=== PATIENT | male | born 1945 | race Caucasian/White ===

== ENCOUNTER 2018-02-14 18:04 | Emergency (ER) | payer MEDICARE ==
[~2018-02-14] VITALS: Ht 188 cm; Wt 112.7 kg
[~2018-02-14 18:04] MED LIST: ABILIFY10 MG PO; ASPIRIN325 MG PO; AVODART0.5 MG PO; BACTROBAN CREAM15 GM TOPICAL; CITRACAL + D E1 EACH PO; CLARITIN 10 MG10 MG PO; CLEOCIN HCL300 MG PO; CRANBERRY475 MG PO; FISH OIL 1,2001 CAP PO; FLOMAX0.4 MG PO; GLUCAGEN1 MG/VIAL IM; GLUCOPHAGE1000 MG PO; GLUCOPHAGE500 MG PO; JANUVIA100 MG PO; LANTUS INSULIN10 ML SC; MAG-OXIDE400 MG PO; MUCUS RELIEF400 MG PO; NOVOLIN R100 U/ML SQ; NUEDEXTA 20-101 EACH PO; PHENAZOPYRIDIN200 MG PO; PRINIVIL20 MG PO; SINGULAIR10 MG PO; ULTRAM50 MG PO; VITAMIN D31000 UNI2 PO; VITAMIN D5000 UNIT PO; ZOCOR20 MG PO
[2018-02-14 18:19] VITALS: Ht 188 cm; Wt 112.7 kg
[2018-02-14] MEDS ORDERED: KEFLEX500 MG PO (22:20)
[2018-02-14] MEDS ORDERED: VOLTAREN75 MG PO (22:20)
[2018-02-14 23:05] VITALS: BP 120/74
== END 2018-02-14 23:06 ==
LOC: D.ER 18:04
DX: L03.113 Cellulitis of right upper limb (principal); R60.0 Localized edema; E11.9 Type 2 diabetes mellitus without complications

== ENCOUNTER → 2018-10-10 08:14 | Outpatient (CLI) | payer MEDICARE, MEDICAID ==
[2018-02-14 18:19] VITALS: BMI 31.9
[~2018-10-10 08:14] MED LIST changes: +KEFLEX500 MG PO; +VOLTAREN75 MG PO
== END | disposition home or self-care (01) ==
LOC: D.CT 08:14
PROVIDERS: ATTEND Legal Medicine
DX: G20 Parkinson's disease (principal)

== ENCOUNTER 2019-12-29 12:21 | Inpatient (IN) | payer MEDICARE, MEDICAID ==
[~2019-12-29] VITALS: Ht 188 cm; Wt 115.2 kg
[2019-12-29] MEDS ORDERED: BASAGLAR K100 UNIT/1 SC ×2 (13:02)
[2019-12-29] MEDS ORDERED: LINZESS72 MCG PO (13:03)
[2019-12-29] MEDS ORDERED: BUSPAR10 MG PO (13:03)
[2019-12-29] MEDS ORDERED: IMODIUM2 MG PO (13:04)
[2019-12-29] MEDS ORDERED: SEROQUEL25 MG PO (13:05)
[2019-12-29] MEDS ORDERED: HUMULIN R100 UNIT/1 SC (13:05)
[2019-12-29] MEDS ORDERED: ZOLOFT50 MG PO (13:06)
[2019-12-29 13:39] LABS: ANION GAP 11.3 mmol/L (8-16); CALCIUM 9.8 mg/dL (8.5-10.1); CREATININE - SERUM 1.1 mg/dL (0.6-1.3); POTASSIUM - SERUM 4.3 mmol/L (3.5-5.1)
[2019-12-29 13:44] LABS: HEMATOCRIT 37.2 % (42.0-54.0); HEMOGLOBIN 11.2 g/dL (13.5-17.5); LYMPHOCYTES 16.1 % (15-50); MCH 21.8 pg (26.0-34.0); MCHC 30.1 g/dL (31.0-37.0); MCV 72.5 fL (80.0-100.0); MEAN PLATELET VOLUME 8.5 fL (7.4-10.4); NEUTROPHILS 74.9 % (40-80); RBC 5.13 10x6/uL (4.20-6.10); RDW 17.8 % (11.5-14.5); WBC 10.5 10x3/uL (4.8-10.8)
[2019-12-29 13:45] LABS: PLATELET COUNT 512 10x3/uL (130-400)
[2019-12-29 13:46] LABS: ALBUMIN 3.3 g/dL (3.4-5.0); BILIRUBIN - TOTAL 0.34 mg/dL (0.2-1.3); PROTEIN - SERUM 7.1 g/dL (6.4-8.2)
[2019-12-29 14:00] VITALS: BP 115/58
[2019-12-29 15:00] VITALS: BP 144/64
[2019-12-29 15:17] LABS: BILIRUBIN NEGATIVE (NEGATIVE); GLUCOSE NEGATIVE (NEGATIVE); KETONE NEGATIVE (NEGATIVE); NITRITE POSITIVE (NEGATIVE); SPECIFIC GRAVITY 1.025 (1.005-1.020); UROBILINOGEN NORMAL (NORMAL)
[2019-12-29 15:20] LABS: BACTERIA MANY /hpf (NEGATIVE); RED CELLS - URINE 0-5 /hpf (0-5); WHITE CELLS - URINE >50 /hpf (NEGATIVE)
[2019-12-29 16:03] VITALS: BP 162/72
[2019-12-29 17:03] VITALS: BP 157/75
[2019-12-29 18:50] VITALS: BP 139/59
--- NOTE | 2019-12-29 19:10 | NUR ---
PT ARRIVED ON UNIT.
--- NOTE | 2019-12-29 19:20 | NUR ---
PT SITUATED IN BED, IV FLUIDS AND ABX RUNNING. PT IS ALERT AND ORIENTED X3. RESTING COMFORTABLY IN BED. DENIES ANY NEEDS. BED IN LOWEST POSITION, BED RAILS X2, CALL LIGHT WITHIN REACH. WILL CONTINUE TO MONITOR.
[2019-12-29 21:15] VITALS: BP 125/54
--- NOTE | 2019-12-29 23:00 | NUR ---
A&O, SPEAKING AND WALKING, SLIGHT WEAKNESS NOTED. FSBS 47, GIVEN JUICE AND JELLO, AND ADDED TO HYPOGLYCEMIC PROTOCOL. TREATED PER PROTOCOL. FSBS AFTER RECHECK 100. CARMENCITA GIBBS PAGED AND NOTIFIED. FLUIDS CHANGED PER ORDER.
[2019-12-30 00:32] VITALS: BP 129/64
[2019-12-30 01:11] VITALS: BMI 32.5
--- NOTE | 2019-12-30 02:47 | NUR ---
I have reviewed this patient and I concur with the Shift Assessment completed by the Licensed Practical Nurse today this shift.
--- NOTE | 2019-12-30 05:30 | NUR ---
FSBS 65, PT GIVEN POPSICLE AND APPLE JUICE, CTM.
[2019-12-30 06:22] VITALS: BP 150/66
[2019-12-30 06:57] LABS: BASOPHILS 0.3 % (0-2); EOSINOPHILS 2.1 % (0-7); HEMATOCRIT 35.4 % (42.0-54.0); HEMOGLOBIN 10.4 g/dL (13.5-17.5); IMMATURE GRANULOCYTES 0.2 % (0-5); LYMPHOCYTES 15.4 % (15-50); MCH 21.6 pg (26.0-34.0); MCHC 29.4 g/dL (31.0-37.0); MCV 73.4 fL (80.0-100.0); MEAN PLATELET VOLUME 8.5 fL (7.4-10.4); MONOCYTES 7.7 % (2-11); NEUTROPHILS 74.3 % (40-80); RBC 4.82 10x6/uL (4.20-6.10); RDW 17.8 % (11.5-14.5); WBC 8.9 10x3/uL (4.8-10.8)
[2019-12-30 07:14] LABS: CALC OSMOLALITY 285 mosm/kg (275-300); CALCIUM 8.7 mg/dL (8.5-10.1); CARBON DIOXIDE 27.9 mmol/L (21.0-32.0); CHLORIDE - SERUM 105 mmol/L (98-107); GLUCOSE 148 mg/dL (74-106); SODIUM 142 mmol/L (136-145); UREA NITROGEN 12 mg/dL (7-18)
[2019-12-30 07:15] LABS: CREATININE - SERUM 0.8 mg/dL (0.6-1.3); eGFR NON AFRICAN AMERICAN > 90 mL/min (90-120)
--- NOTE | 2019-12-30 07:15 | NUR ---
ALERT AND SITTING UP IN CHAIR THIS AM. NO C/O PAIN. NO S/S OF ACUTE DISTRESS NOTED. UP WITH STANDBY ASSIST. INUPIAT. INCONTINENT OF B&B. IV TO RIGHT AC, D5 NS INFUSING @ 50ML/HR. SITE PATENT WITHOUT REDNESS OR SWELLING. DENIES ANY NEEDS AT THIS TIME. CALL LIGHT IN REACH. WILL CONTINUE TO MONITOR.
[2019-12-30 07:20] LABS: PLATELET COUNT 379 10x3/uL (130-400)
[2019-12-30 08:17] VITALS: BP 110/40
[2019-12-30 13:05] VITALS: BP 100/92
[2019-12-30 13:29] VITALS: Ht 188 cm; Wt 115.2 kg
--- NOTE | 2019-12-30 14:06 | NUR ---
I have reviewed this patient and I concur with the Shift Assessment completed by the Licensed Practical Nurse today this shift.
[2019-12-30 17:10] VITALS: BP 153/74
[2019-12-30 20:00] VITALS: BP 149/65
--- NOTE | 2019-12-30 20:00 | NUR ---
A&O X 4. PT RINCON. RAMBLES/MUMBLES RANDOM NUMBERS WHEN NOT ENGAGED IN CONVERSATION. DENIES PAIN, TOLERATING DIET, NO N/V. SCDs APPLIED. POPSICLE GIVEN PER REQUEST. NO FURTHER NEEDS AT THIS TIME.
[2019-12-31] VITALS: BP 157/63
[2019-12-31 04:00] VITALS: BP 155/74
[2019-12-31 07:02] LABS: CALC OSMOLALITY 279 mosm/kg (275-300); CALCIUM 9.2 mg/dL (8.5-10.1); CARBON DIOXIDE 30.4 mmol/L (21.0-32.0); CHLORIDE - SERUM 106 mmol/L (98-107); CREATININE - SERUM 0.8 mg/dL (0.6-1.3); GLUCOSE 108 mg/dL (74-106); POTASSIUM - SERUM 3.5 mmol/L (3.5-5.1); SODIUM 141 mmol/L (136-145); UREA NITROGEN 8 mg/dL (7-18); eGFR NON AFRICAN AMERICAN > 90 mL/min (90-120)
[2019-12-31 07:36] LABS: HEMATOCRIT 37.6 % (42.0-54.0); HEMOGLOBIN 11.3 g/dL (13.5-17.5); LYMPHOCYTES 14.8 % (15-50); MCH 21.9 pg (26.0-34.0); MCHC 30.1 g/dL (31.0-37.0); MCV 72.9 fL (80.0-100.0); MEAN PLATELET VOLUME 8.5 fL (7.4-10.4); NEUTROPHILS 77.7 % (40-80); RBC 5.16 10x6/uL (4.20-6.10); WBC 9.2 10x3/uL (4.8-10.8)
[2019-12-31 07:41] LABS: PLATELET COUNT 462 10x3/uL (130-400)
[2019-12-31 08:12] LABS: HEPATITIS C ANTIBODY <0.1 S/CO RAT (0.0-0.9)
[2019-12-31 08:19] VITALS: BP 106/74
[2019-12-31 12:27] VITALS: BP 117/75
--- NOTE | 2019-12-31 12:34 | NUR ---
ASSISTED UP TO BATHROOM. YAAKOV IN ROOM TO ASSIST BACK TO BED. PATIENT WITHOUT DISTRESS.
--- NOTE | 2019-12-31 12:39 | NUR ---
GIVEN IMODIUM 2 MG AT THIS TIME FOR SEVERAL LOOSE STOOLS. C/L IN REACH AT BEDSIDE.
[2019-12-31 16:37] VITALS: BP 146/65
[2019-12-31 17:00] LABS: % SATURATION 4 % (15-55); IRON 19 ug/dl (35-150); TOTAL IRON BIND CAPACITY 385 ug/dl (260-445); UNSAT IRON BIND CAPACITY 366 ug/dl (150-375)
[2019-12-31 20:00] VITALS: BP 149/68
--- NOTE | 2019-12-31 20:00 | NUR ---
PATIENT RESTING IN BED WATCHING TV. NO S/S OF ACUTE DISTRESS. NO C/O AT THIS TIME. PATIENT IS SLIGHTLY CONFUSED TO SITUATION, AND MUMBLES COUNTING NUMBERS OVER AND OVER. PATIENT HAS LEFT FOREARM, D5 NORMAL SALINE @ 50 ML/HR. IV IS PATENT WITHOUT REDNESS, SWELLING, OR TENDERNESS. PATEINT IS UP WITH ASSISTANCE TO BATHROOM. PATIENT HAS BOUTS OF BLADDER INCONTINENCE. CALL LIGHT WITHIN REACH, BED ALARM ON. WILL CONTINUE TO MONITOR.
--- NOTE | 2019-12-31 23:00 | NUR ---
I have reviewed this patient and I concur with the Shift Assessment completed by the Licensed Practical Nurse today this shift.
[2020-01-01] VITALS: BP 133/70
[2020-01-01 04:00] VITALS: BP 156/79
[2020-01-01 05:14] LABS: BASOPHILS 0.2 % (0-2); CALC OSMOLALITY 275 mosm/kg (275-300); CALCIUM 8.3 mg/dL (8.5-10.1); CARBON DIOXIDE 30.6 mmol/L (21.0-32.0); CHLORIDE - SERUM 107 mmol/L (98-107); CREATININE - SERUM 0.8 mg/dL (0.6-1.3); EOSINOPHILS 1.7 % (0-7); HEMATOCRIT 33.5 % (42.0-54.0); HEMOGLOBIN 9.9 g/dL (13.5-17.5); IMMATURE GRANULOCYTES 0.2 % (0-5); LYMPHOCYTES 18.6 % (15-50); MCH 21.5 pg (26.0-34.0); MCHC 29.6 g/dL (31.0-37.0); MCV 72.7 fL (80.0-100.0); MEAN PLATELET VOLUME 8.6 fL (7.4-10.4); MONOCYTES 8.2 % (2-11); NEUTROPHILS 71.1 % (40-80); POTASSIUM - SERUM 3.2 mmol/L (3.5-5.1); RBC 4.61 10x6/uL (4.20-6.10); RDW 17.8 % (11.5-14.5); SODIUM 141 mmol/L (136-145); UREA NITROGEN 6 mg/dL (7-18); WBC 8.7 10x3/uL (4.8-10.8); eGFR NON AFRICAN AMERICAN > 90 mL/min (90-120)
[2020-01-01 05:22] LABS: PLATELET COUNT 368 10x3/uL (130-400)
[2020-01-01 05:33] LABS: GLUCOSE 48 mg/dL (74-106)
--- NOTE | 2020-01-01 07:10 | NUR ---
ALERT AND RESTING IN BED. NO C/O PAIN. NO S/S OF ACUTE DISTRESS NOTED. UP WITH ASSIST. INCONTINENT AT TIMES OF B&B. SCDS ON. PATIENT COUNTS TO SELF. IV TO LEFT FOREARM, D5 NS INFUSING @ 50ML/HR. SITE PATENT WITHOUT REDNESS OR SWELLING. POTASSIUM 3.2 THIS AM. NOT ON ELECTROLYTE PROTOCOL. BLOOD SUGAR DROPS AT PER SEWING MACHINE OPERATOR ZIPPER NURSE, AFTER ADMINISTRATION OF LANTUS AT NIGHT. DENIES ANY NEEDS AT THIS TIME. CALL LIGHT IN REACH. WILL CONTINUE TO MONITOR.
--- NOTE | 2020-01-01 08:05 | NUR ---
LYING IN BED,WITHOUT DISTRESS.
[2020-01-01 08:33] VITALS: BP 171/76
[2020-01-01 12:22] VITALS: BP 148/75
[2020-01-01 16:59] VITALS: BP 143/60
[2020-01-01 20:00] VITALS: BP 149/66
--- NOTE | 2020-01-01 20:00 | NUR ---
PATIENT RESTING IN BED WATCHING TV. PATIENT IS A&0 X3-TIME. PATIENT ALSO COUNTS OVER AND OVER. PATIENT HAS LEFT FOREARM IV, D5 NORMAL SALINE @ 50 ML/HR. IV IS PATENT WITHOUT REDNESS, SWELLING, OR TENDERNESS. PATIENT IS A STAND-BY ASSIST TO THE BATHROOM. PATIENT IS INCONTINENT. CALL LIGHT WITHIN REACH. BED ALARM ON. WILL CONTINUE TO MONITOR.
--- NOTE | 2020-01-02 03:48 | NUR ---
I have reviewed this patient and I concur with the Shift Assessment completed by the Licensed Practical Nurse today this shift.
[2020-01-02 04:00] VITALS: BP 135/68
[2020-01-02 05:02] LABS: BASOPHILS 0.3 % (0-2); EOSINOPHILS 1.8 % (0-7); HEMATOCRIT 32.7 % (42.0-54.0); HEMOGLOBIN 9.6 g/dL (13.5-17.5); IMMATURE GRANULOCYTES 0.3 % (0-5); LYMPHOCYTES 18.5 % (15-50); MCH 21.4 pg (26.0-34.0); MCHC 29.4 g/dL (31.0-37.0); MEAN PLATELET VOLUME 8.6 fL (7.4-10.4); MONOCYTES 9.6 % (2-11); NEUTROPHILS 69.5 % (40-80); PLATELET COUNT 341 10x3/uL (130-400); RBC 4.48 10x6/uL (4.20-6.10); RDW 17.8 % (11.5-14.5); WBC 8.7 10x3/uL (4.8-10.8)
[2020-01-02 05:19] LABS: CALC OSMOLALITY 280 mosm/kg (275-300); CALCIUM 8.4 mg/dL (8.5-10.1); CARBON DIOXIDE 29.3 mmol/L (21.0-32.0); CHLORIDE - SERUM 109 mmol/L (98-107); CREATININE - SERUM 0.8 mg/dL (0.6-1.3); GLUCOSE 80 mg/dL (74-106); POTASSIUM - SERUM 3.4 mmol/L (3.5-5.1); SODIUM 143 mmol/L (136-145); UREA NITROGEN 5 mg/dL (7-18); eGFR NON AFRICAN AMERICAN > 90 mL/min (90-120)
--- NOTE | 2020-01-02 07:40 | NUR ---
RESTING IN BED, NO DISTRESS NOTED, ISOLATION IN PLACE DT URINE, CONT TO MONITOR SUGARS AND OUTPUT
[2020-01-02 08:30] VITALS: BP 163/78
[2020-01-02 12:30] VITALS: BP 159/80
[2020-01-02 17:39] VITALS: BP 148/77
--- NOTE | 2020-01-02 19:55 | NUR ---
PATIENT RESTING IN BED WITH NO S/S OF DISTRESS. PATIENT DENIES NEEDS AT THIS TIME. BED IN LOWEST POSITION AND CALL LIGHT WITHIN REACH. BED ALARM ON. ENCOURAGED THE PATIENT TO CALL IF HE HAS NEEDS. WILL CONTINUE TO MONITOR.
[2020-01-02 20:00] VITALS: BP 170/74
[2020-01-03] VITALS: BP 142/70
[2020-01-03 04:00] VITALS: BP 140/69
[2020-01-03 06:20] LABS: BASOPHILS 0.2 % (0-2); EOSINOPHILS 1.2 % (0-7); HEMOGLOBIN 10.2 g/dL (13.5-17.5); IMMATURE GRANULOCYTES 0.3 % (0-5); LYMPHOCYTES 14.6 % (15-50); MCH 21.7 pg (26.0-34.0); MCV 72.5 fL (80.0-100.0); MEAN PLATELET VOLUME 8.3 fL (7.4-10.4); MONOCYTES 8.7 % (2-11); PLATELET COUNT 316 10x3/uL (130-400); RBC 4.69 10x6/uL (4.20-6.10); WBC 9.7 10x3/uL (4.8-10.8)
[2020-01-03 06:33] LABS: CALC OSMOLALITY 278 mosm/kg (275-300); CALCIUM 8.5 mg/dL (8.5-10.1); CARBON DIOXIDE 30.9 mmol/L (21.0-32.0); CHLORIDE - SERUM 107 mmol/L (98-107); CREATININE - SERUM 0.6 mg/dL (0.6-1.3); POTASSIUM - SERUM 3.2 mmol/L (3.5-5.1); SODIUM 143 mmol/L (136-145); UREA NITROGEN 4 mg/dL (7-18); eGFR NON AFRICAN AMERICAN > 90 mL/min (90-120)
[2020-01-03 06:40] LABS: GLUCOSE 44 mg/dL (74-106)
--- NOTE | 2020-01-03 06:49 | NUR ---
GAVE PATIENT ORANGE JUICE FOR BLOOD GLUCOSE OF 44
--- NOTE | 2020-01-03 07:35 | NUR ---
RESTING IN BED, NO DISTRESS NOTED, COUNTING, IV INFUSING
[2020-01-03] MEDS ORDERED: BACTRIM DS TAB1 EAC1 PO (08:25)
[2020-01-03] MEDS ORDERED: LEVOFLOXACIN500 MG PO (08:25)
[2020-01-03 08:29] VITALS: BP 145/69
[2020-01-03] MEDS ORDERED: FLAGYL500 MG PO (08:34)
--- NOTE | 2020-01-03 08:57 | MORECARE ---
CASE MANAGEMENT DISCHARGE SUMMARY PATIENT: MARITZA ACUÑA UNIT: [id number] ADM DATE: 12/29/19 AGE: 74 : 43 SEX: M ROOM/BED: D.2240 AUTHOR: ALCIRA DRISCOLL PHYSICIAN: REFERRING PHYSICIAN: CODY TILLMAN MD DATE OF SERVICE: 01/03/20 Discharge Plan Patient Name: MARITZA ACUÑA Facility: [facility]:[place] : 1945 Planned Disposition: Anticipated Discharge Date: Discharge Date: Expected LOS: Initial Reviewer: [email or web address] Initial Review Date: 12/29/2019 Generated: 01/03/20 9:56 am External [facility] Contact Date: Service Request Date: Service Type: Resolution: Reviewer: Comments: Patient Name: MARITZA ACUÑA Page [id number] at 0857 All edits/amendments must be made on the electronic document DICTATION DATE: 01/03/20 0856 TOLL BRIDGE OPERATOR: LIZET 01/03/20 0856 RPT#: [id number] DC DATE: STATUS: ADM IN [facility] [address] [place] [address] END OF REPORT
--- NOTE | 2020-01-03 09:03 | MORECARE ---
CASE MANAGEMENT DISCHARGE SUMMARY PATIENT: MARITZA ACUÑA UNIT: [id number] ADM DATE: 12/29/19 AGE: 74 : 43 SEX: M ROOM/BED: D.2240 AUTHOR: ALCIRA DRISCOLL PHYSICIAN: REFERRING PHYSICIAN: CODY TILLMAN MD DATE OF SERVICE: 01/03/20 Discharge Plan Patient Name: MARITZA ACUÑA [facility] [facility] 1945 Planned Disposition: Anticipated Discharge Date: Discharge Date: Expected LOS: Initial Reviewer: [email or web address] Initial Review Date: 12/29/2019 Generated: 01/03/20 10:03 am DCPIA - Discharge Planning Initial Assessment Updated by [email or web address]: Kinza West on 01/03/20 9:00 am * How many steps to enter\exit or inside your home? 0/0 * PCP KISHOR * Pharmacy [facility] * Preadmission Environment [facility] * Facility Name [facility] * ADLs Partial Dependent * Partial ADLs (Assistance needed) Bathing Dressing Medication Management Toileting * List name and contact numbers for known caregivers / representatives who currently or will assist patient after discharge: WILLY [phone] * Community resources currently utilized None * Additional services required to return to the preadmission environment? No * Can the patient safely return to the preadmission environment? Yes * Has this patient been hospitalized within the prior 30 days at any hospital? No Last DP export: 01/03/20 7:57 a Patient Name: MARITZA ACUÑA Page [id number] at 0903 All edits/amendments must be made on the electronic document DICTATION DATE: 01/03/20902 BYPRODUCT ENGINEER: LIZET 01/03/20902 RPT#: [id number] DC DATE: STATUS: ADM IN [facility] [address] [place] [address] END OF REPORT
--- NOTE | 2020-01-03 09:10 | MORECARE ---
CASE MANAGEMENT DISCHARGE SUMMARY PATIENT: MARITZA ACUÑA UNIT: [id number] ADM DATE: 12/29/19 AGE: 74 : 43 SEX: M ROOM/BED: D.2240 AUTHOR: ALCIRA DRISCOLL PHYSICIAN: REFERRING PHYSICIAN: CODY TILLMAN MD DATE OF SERVICE: 01/03/20 Discharge Plan Patient Name: MARITZA ACUÑA Facility: [facility]:[place] : 1945 Planned Disposition: Anticipated Discharge Date: Discharge Date: Expected LOS: Initial Reviewer: [email or web address] Initial Review Date: 12/29/2019 Generated: 01/03/20 10:09 am Comments DCP- Discharge Planning Updated by [email or web address]: Kinza West on 01/03/20 8:[address] Patient Name: MARITZA ACUÑA Admission Status: ER Accout number: [id number] Admission Date: 12-29-2019 : 1945 Admission Diagnosis:URINARY TRACT INFECTION, SITE NOT SPECIFIED Attending: CODY TILLMAN Current LOS: 5 Anticipated DC Date: Planned Disposition: Primary Insurance: [facility] [place]PO Discharge Planning Comments: CM met with patient to complete initial dc planning assessment. CM educated patient on the CM role and verbal consent given by patient to complete assessment. CM verified patient's address, phone number, and emergency contact phone numbers. Patient currently resides at [facility] ([phone]). At discharge patient plans to return to the [facility] and feels this is a safe discharge. CM called the [facility] to initiate DC and Spoke with Jazmyne. CM faxed clinicals to [phone]. Jazmyne will speak with her supervisor gelatin plant to prepare for discharge. THUY form signed by patient for return to The [facility]. Signed form placed in chart and signed form given to patient. Patient denied further known discharge needs at this time. DC IMM delivered, explained, signed by the patient, and placed in his chart. Signed form also left with patient.Transportation provider at discharge will be from the [facility]. CM will continue to follow and will assist as needed with dc plans/needs. Php Programmer: Kinza West MSN,RN,CM DCPIA - Discharge Planning Initial Assessment Updated by [email or web address]: Kinza West on 01/03/20 9:00 am * How many steps to enter\exit or inside your home? 0/0 * PCP KISHOR * Pharmacy [facility] * Preadmission Environment [facility] * Facility Name [facility] * ADLs Partial Dependent * Partial ADLs (Assistance needed) Bathing Dressing Medication Management Toileting * List name and contact numbers for known caregivers / representatives who currently or will assist patient after discharge: WILLY [phone] * Community resources currently utilized None * Additional services required to return to the preadmission environment? No * Can the patient safely return to the preadmission environment? Yes * Has this patient been hospitalized within the prior 30 days at any hospital? No Coverage Notice Reviewer: [id number] West Notice Issued Date-Time: 01/03/2020 9:00 Notice Type: IM Discharge Notice Notice Delivered To: Patient Relationship to Patient: Electrical Designer Drafter Name: Delivery Method: HAND - Hand Delivered Susana Days: Prior Verbal Notification: Recipient Understood Notice: Yes Recipient Signature: Yes Med Rec Note Co-signed by Attending: Coverage Notice Comment: DC IMM delivered, explained, signed by the patient, and placed in his chart. Signed form also left with patient. Reviewer: [id number] Tianna West Notice Issued Date-Time: 01/03/2020 9:00 Notice Type: Patient Choice Letter Notice Delivered To: Patient Relationship to Patient: Electrical Designer Drafter Name: Delivery Method: HAND - Hand Delivered Susana Days: Prior Verbal Notification: Recipient Understood Notice: Yes Recipient Signature: Yes Med Rec Note Co-signed by Attending: Coverage Notice Comment: THUY to return to [facility] Last DP export: 01/03/20 8:03 a Patient Name: MARITZA ACUÑA Page [phone] at 0910 All edits/amendments must be made on the electronic document DICTATION DATE: 01/03/20908 MORTGAGE CLERK: LIZET 01/03/20908 RPT#: [id number] DC DATE: STATUS: ADM IN [facility] [address] [place] [address] END OF REPORT
--- NOTE | 2020-01-03 10:24 | MORECARE ---
CASE MANAGEMENT DISCHARGE SUMMARY PATIENT: MARITZA ACUÑA UNIT: [id number] ADM DATE: 12/29/19 AGE: 74 : 43 SEX: M ROOM/BED: D.2240 AUTHOR: ALCIRA DRISCOLL PHYSICIAN: REFERRING PHYSICIAN: CODY TILLMAN MD DATE OF SERVICE: 01/03/20 Discharge Plan Patient Name: MARITZA ACUÑA Facility: [facility]:[place] : 1945 Planned Disposition: Anticipated Discharge Date: Discharge Date: Expected LOS: Initial Reviewer: [email or web address] Initial Review Date: 12/29/2019 Generated: 01/03/20 11:23 am Comments DCP- Discharge Planning Updated by [email or web address]: Kinza West on 01/03/20 9:[address] Patient Name: MARITZA ACUÑA Admission Status: ER Accout number: [id number] Admission Date: 12-29-2019 : 1945 Admission Diagnosis:URINARY TRACT INFECTION, SITE NOT SPECIFIED Attending: CODY TILLMAN Current LOS: 5 Anticipated DC Date: Planned Disposition: Primary Insurance: [facility] [place] HMO or PPO Discharge Planning Comments: CM met with patient to complete initial dc planning assessment. CM educated patient on the CM role and verbal consent given by patient to complete assessment. CM verified patient's address, phone number, and emergency contact phone numbers. Patient currently resides at [facility] ([phone]). At discharge patient plans to return to the [facility] and feels this is a safe discharge. CM called the [facility] to initiate DC and Spoke with Jazmyne. CM faxed clinicals to [phone]. Jazmyne will speak with her coil machine supervisor to prepare for discharge. THUY form signed by patient for return to The [facility]. Signed form placed in chart and signed form given to patient. Patient denied further known discharge needs at this time. DC IMM delivered, explained, signed by the patient, and placed in his chart. Signed form also left with patient.Transportation provider at discharge will be from the [facility]. CM will continue to follow and will assist as needed with dc plans/needs. CM spoke with Jazmyne from [facility]. They have accepted pt back. He will return to a [facility] bed in room 104. Report can be called to Jazmyne at [phone]. CM updated nurse with details. The [facility] will sisal picker patient at 1100 am today. Dough Panner: Kinza West MSN,RN,CM DCPIA - Discharge Planning Initial Assessment Updated by [email or web address]: Kinza West on 01/03/20 9:00 am * How many steps to enter\exit or inside your home? 0/0 * PCP KISHOR * Pharmacy [facility] * Preadmission Environment [employer] [facility] * Facility Name [facility] * ADLs Partial Dependent * Partial ADLs (Assistance needed) Bathing Dressing Medication Management Toileting * List name and contact numbers for known caregivers / representatives who currently or will assist patient after discharge: WILLY [phone] * Community resources currently utilized None * Additional services required to return to the preadmission environment? No * Can the patient safely return to the preadmission environment? Yes * Has this patient been hospitalized within the prior 30 days at any hospital? No Coverage Notice Reviewer: [email or web address] Tianna Wset Notice Issued Date-Time: 01/03/2020 9:00 Notice Type: IM Discharge Notice Notice Delivered To: Patient Relationship to Patient: Liquor Merchant Name: Delivery Method: HAND - Hand Delivered Susana Days: Prior Verbal Notification: Recipient Understood Notice: Yes Recipient Signature: Yes Med Rec Note Co-signed by Attending: Coverage Notice Comment: DC IMM delivered, explained, signed by the patient, and placed in his chart. Signed form also left with patient. Reviewer: [email or web address] Tianna West Notice Issued Date-Time: 01/03/2020 9:00 Notice Type: Patient Choice Letter Notice Delivered To: Patient Relationship to Patient: Liquor Merchant Name: Delivery Method: HAND - Hand Delivered Susana Days: Prior Verbal Notification: Recipient Understood Notice: Yes Recipient Signature: Yes Med Rec Note Co-signed by Attending: Coverage Notice Comment: THUY to return to [facility] Last DP export: 01/03/20 8:10 a Patient Name: MARITZA ACUÑA Page [phone] at 1024 All edits/amendments must be made on the electronic document DICTATION DATE: 01/03/20 1023 SQL SERVER ARCHITECT: LIZET 01/03/20 1023 RPT#: [id number] DC DATE: STATUS: ADM IN [facility] [address] [place] [address] END OF REPORT
--- NOTE | 2020-01-03 11:20 | NUR ---
D/C IV, TIP INTACT, TAKEN FROM HOSPITAL PER ALBERT STAFF IN HIS W/C, DC PACKET INCLUDED
== END 2020-01-03 11:20 | DRG 392 ==
LOC: D.ER 12:21 → D.MS 17:31
PROVIDERS: Family Medicine; Internal Medicine Gastroenterology; ADMIT Legal Medicine; ATTEND Legal Medicine
DX: A09 Infectious gastroenteritis and colitis, unspecified (principal); N39.0 Urinary tract infection, site not specified; N28.1 Cyst of kidney, acquired; D47.3 Essential (hemorrhagic) thrombocythemia; D64.9 Anemia, unspecified; E11.9 Type 2 diabetes mellitus without complications; F20.9 Schizophrenia, unspecified; G20 Parkinson's disease; F02.80 Dementia in other diseases classified elsewhere, unspecified severity, without behavioral disturbance, psychotic disturbance, mood disturbance, and anxiety; B96.20 Unspecified Escherichia coli [E. coli] as the cause of diseases classified elsewhere

== ENCOUNTER 2020-01-31 06:38 | Inpatient (IN) | payer MEDICARE, MEDICAID ==
[~2020-01-31] VITALS: Ht 188 cm; Wt 106.2 kg
--- NOTE | ~2020-01-31 | HEMODYNAMI ---
PATIENT:MARITZA ACUÑA MEDICAL RECORD: [id number] : 41 LOCATION:[place] [address] ADMISSION DATE: 01/31/20 Generatedon:02/01/202012:43 Patient name: MARITZA ACUÑA Patient #: [id number] : 1945 Date of study: 02/01/2020 Page: Of Hemodynamic Procedure Report Patient Data Patient Demographics Procedure consent was obtained First Name: MARITZA Gender: Male Last Name: ARIANNE : 1945 Patient #: [id number] Age: 74 year(s) Race: SSN: [id number] Additional ID: [id number] Contact details Address: [address] [place] [address] rd State: [place] City: [facility] Zip code: [address] Past Medical History Allergies Allergen Reaction Date Comments Reported Other allergy 02/01/2020 PCN, SULFA Admission Admission Data Admission Date: 01/31/2020 Admission Time: 10:22 Arrival Date: 01/31/2020 Arrival Time: 10:22 Admit Source: Emergency Insurance Payor: Medicare department [facility] #: [id number] Room #: [facility] Height (in.): 73.62 BSA: 2.36 (m2) Height (cm.): 187 BMI: 31.74 (kg/m2) Weight (lbs.): 244.71 Weight (kg.): 111 Lab Results Lab Result Date: 02/01/2020 Lab Result Time: 1:00 CBC Name Units Result Min Max Hematocrit % 33.1 *-(----)-- 42 54 Hemoglobin g/dl 9.9 *-(----)-- 13.5 17.5 Procedure Procedure Types Cath Procedure Diagnostic Procedure [facility] w/Coronaries Sedation Charges Moderate Sedation up to 15 minutes PCI Procedure Coronary Stent Coronary Stent Initial Hemochron ACT Test Procedure Description Procedure Date Procedure Date: 02/01/2020 Procedure Start Time: 12:12 Procedure End Time: 12:39 Procedure Staff Name Function Alexander Harrison MD Performing Physician Jeanette Pabon RT Monitor Savita Martell RT Scrub Latisha Fernandez RN Nurse Procedure Data Cath Procedure Fluoroscopy Diagnostic fluoroscopy Total fluoroscopy Time: 4.5 time: 4.5 min min Diagnostic fluoroscopy Total fluoroscopy dose: 913 dose: 913 mGy mGy Contrast Material Contrast Material Type Amount (ml) Isovue 300 102 Entry Location Entry Primary Successful Side Size Upsize Upsize Entry Closure Succes sful Closure Location (Fr) 1 (Fr) 2 (Fr) Remarks Device Remarks Femoral Right 5 Fr 6 Fr Exoseal artery Short Estimated blood loss: 10 ml Diagnostic catheters Device Type Used For End Catheter Placement MULTIPACK JL 4.0 5Fr Procedure catheter MULTIPACK 3DRC 5Fr Procedure catheter MULTIPACK Pigtail 5 Fr Procedure catheter Procedure Complications No complications Procedure Medications Medication Administration Route Dosage Oxygen etCO2 Nasal cannula 2 l/min Lidocaine 2% added to field 20 Heparin Flush Bag added to field 2 bags (1000units/500ml NS) 0.9% NaCl I.V. 100 ml/hr Versed I.V. 0.5 mg Fentanyl I.V. 25 mcg Versed I.V. 0.5 mg Fentanyl I.V. 25 mcg Heparin Bolus I.V. 19441 units Plavix P.O. 600 mg Hemodynamics Rest BSA: 2.36 (m2) HGB: 9.9 (g/dl) O2 Consumption: Estimated: 278.56 (ml/min) O2 Con sumption indexed: Estimated:118.03 (ml/min/m) Heart Rate: 79 (bpm) Pressure Samples Time Site Value (mmHg) Purpose Heart Use Rate(bpm) 12:24 LV 158/-3,23 Snapshot 84 12:24 LV 153/-7,24 Snapshot 78 12:25 AO 154/58(100) Pullback 83 12:25 LV 155/1,37 Pullback 83 Gradients Valve Time Site 1 Site 2 Mean SEP/DFP Peak To Heart Use (mmHg) (sec/min) Peak Rate (mmHg) (bpm) Aortic 12:25 LV AO 9 24 1 83 155/1,37 154/58(100) Calculations Valve P-P Mean Valve Index Valve Source Name Gradient Area Flow (cm2) Aortic 1 9 1 9 Snapshots Pre Cath Intra NCS Post Cath Vital Signs Time Heart Resp SPO2 etCO2 NIBP (mmHg) Rhythm Pain Sedation Rate (ipm) (%) (mmHg) Status Level (bpm) 11:57:21 77 16 97 0 152/87(126) NSR 0 (11) 10(A) , No pain 12:01:35 83 21 95 0 159/76(124) NSR 0 (11) 10(A) , No pain 12:05:43 73 16 93 0 153/84(128) NSR 0 (11) 10(A) , No pain 12:09:49 73 16 97 0 159/89(125) NSR 0 (11) 10(A) , No pain 12:14:03 73 16 94 0 159/79(120) NSR 0 (11) 10(A) , No pain 12:19:00 81 16 97 0 154/82(125) NSR 0 (11) 9(A) , No pain 12:23:12 78 15 96 0 154/81(125) NSR 0 (11) 9(A) , No pain 12:27:26 81 16 96 0 157/80(127) NSR 0 (11) 9(A) , No pain 12:31:40 85 15 96 0 161/78(127) NSR 0 (11) 9(A) , No pain 12:35:54 86 16 96 0 149/77(126) NSR 0 (11) 10(A) , No pain Medications Time Medication Route Dose Verified Delivered Reason Note s Effectiveness by by 11:59:57 Oxygen etCO2 2 Alexander Buffie used for Nasal l/min Hunter Fernandez RN procedure cannula 12:00:05 Lidocaine 2% added 20ml Alexander Alexander for local to vial Hunter Harrison MD anesthetic field 12:00:11 Heparin Flush added 2 bags Alexander Alexander used for Bag to Hunter Harrison MD procedure (1000units/500ml field NS) 12:00:21 0.9% NaCl I.V. 100 Alexander Buffie Per physician ml/hr Hunter Fernandez RN 12:11:08 Versed I.V. 0.5 mg Alexander Buffie for sedation Hunter Fernandez RN 12:11:13 Fentanyl I.V. 25 mcg Alexander Buffie for sedation Hunter Fernandez RN 12:16:13 Versed I.V. 0.5 mg Alexander Buffie for sedation Hunter Fernandez RN 12:16:17 Fentanyl I.V. 25 mcg Alexander Latisha for sedation Hunter Fernandez RN 12:29:42 Heparin Bolus I.V. 10,000 Alexander Chiloie for veri fied units Hunter Fernandez RN anticoagulation with dr harrison 12:40:57 Plavix P.O. 600 mg Alexander Latisha for Hunter Fernandez RN antiplatelet therapy Procedure Log Time Note 10:44:19 Diagnostic Cath Status : Urgent 10:44:52 Informed consent obtained and on chart 10:45:56 Arrival Date: 01/31/2020 10:22:00 AM 10:46:18 Admit Source: Emergency department 10:46:26 Insurance Payor : Medicare 10:46:30 Patient Height : 73.62 inches 10:46:34 Patient Weight : 244.71 lbs 10:47:21 Lab Result : BUN 12 mg/dl 10:47:21 Lab Result : Hemoglobin 9.9 g/dl 10:47:21 Lab Result : eGFR NONAFRICAN 90 ml/min 10:47:21 Lab Result : Creatinine 0.7 mg/dl 10:47:30 Procedure Status Urgent Heart Cath (IP). 10:47:33 Time tracking: Regular hours (M-F 7:00 - 5:00) 10:47:37 Plan of Care:Hemodynamics will remain stable., Cardiac rhythm will remain stable., Comfort level will be maintained., Respiratory function will remain adequate., Patient/ family verbilizes understanding of procedure., Procedure tolerated without complication., Recovers from procedure without complications.. 11:37:15 Jeanette Pabon RT(R) sent for patient. Start room use. 11:56:27 Vital chart was started 11:57:42 Patient received from Med II to CCL 1 Alert and oriented. Tansferred to table in Supine position. 11:57:43 Warm blankets applied, and dorita hugger turned on for patient comfort. 11:57:43 Correct patient and procedure confirmed by team. 11:57:44 ECG and BP/O2 sat monitors applied to patient. 11:57:45 Baseline sample Acquired. 11:57:48 Rhythm: sinus rhythm 11:57:49 Full Disclosure recording started 11:57:53 H&P Date Dictated: 02/01/2020 ER History on chart.. 11:57:54 Pre-procedure instructions explained to patient. 11:57:54 Pre-op teaching completed and patient verbalized understanding. 11:59:39 Family unavailable. 11:59:40 Patient NPO since Midnight. 11:59:49 Patient allergic to Other allergyPCN, SULFA 11:59:57 Oxygen 2 l/min etCO2 Nasal cannula was administered by Latisha Fernandez RN; used for procedure; Verbal order read back and verified. 12:00:05 Lidocaine 2% 20ml vial added to field was administered by Alexander Harrison MD; for local anesthetic; Verbal order read back and verified. 12:00:11 Heparin Flush Bag (1000units/500ml NS) 2 bags added to field was administered by Alexander Harrison MD; used for procedure; Verbal order read back and verified. 12:00:12 Is patient on blood thinner?No 12:00:13 Patient diabetic? Yes. 12:00:19 If diabetic: On Metformin? Yes 12:00:21 0.9% NaCl 100 ml/hr I.V. was administered by Latisha Fernandez RN; Per physician; Verbal order read back and verified. 12:00:21 If on Metformin: Last Dose? 01/31/2020 12:00:26 Previous problem with sedation/anesthesia? No ? 12:00:27 Snore? Yes 12:00:28 Sleep apnea? No 12:00:31 Deviated septum? No 12:00:34 Opens mouth fully? Yes 12:00:35 Sticks out tongue? Yes 12:00:50 Airway obstruction? No ? 12:00:52 Dentures? No ? 12:00:54 Pre procedure: right dorsailis pedis pulse 1+ Palpable, but thready & weak; easily obliterated 12:00:56 Modified Hunter's test Ulnar < 7 seconds 12:00:58 Patient pain scale 0/10 ?. 12:01:03 IV patent on arrival in left hand with 0.9% NaCl at [facility]. 12:01:07 Lab results completed and on chart. 12:01:11 Right Radial & Right Groin area was prepped with chlora-prep and draped in sterile fashion 12:01:12 Alarms reviewed by R. N. 12:01:12 Sharps counted by scrub and verified by R.N. 12:04:04 Lab Result : Hemoglobin 9.9 g/dl 12:04:04 Lab Result : Hematocrit 33.1 % 12:04:41 Use device set Radial Dx or PCI 12:04:41 ACIST Syringe (97636) opened to sterile field. 12:04:42 Bag Decanter () opened to sterile field. 12:04:43 ACIST Hand Control (13174) opened to sterile field. 12:04:43 ACIST Manifold (96312) opened to sterile field. 12:04:44 Tegaderm 4 x 4 (1626W) opened to sterile field. 12:04:45 Medline Cath Pack ([id number]) opened to sterile field. 12:04:46 MBrace Wrist Support ([id number]) opened to sterile field. 12:04:46 NEEDLE Cook 21G 4cm Radial (V76134) opened to sterile field. 12:04:47 EMERALD Guide Wire (502-924) opened to sterile field. 12:04:48 SHEATH 6FR RAIN ([id number]) opened to sterile field. 12:07:48 --------ALL STOP TIME OUT------ 12:07:49 Final Timeout: patient, procedure, and site verified with staff and physician. All members of the team are in agreement. 12:07:51 Right Radial & Right Groin site verified by team. 12:07:55 Fire Safety Assessment: A--An alcohol-based skin anteseptic being used preoperatively., C--Open oxygen or nitrous oxide is being used., D--An ESU, laser, or fiber-optic light is being used. 12:07:57 Physical assessment completed. ASA score P 3 - A patient with severe systemic disease as per Alexander Harrison MD. 12:08:01 1) 90+ Normal kidney functon but urine findings or structural abnormalities or genetic trait point to kidney disease. 12:08:03 Maximum allowable contrast dose (3.7 X eGFR X 0.75)250 ml. 12:08:06 Sedation plan: IV Moderate Sedation Medication:Versed, Fentanyl 12:11:08 Versed 0.5 mg I.V. was administered by Latisha Fernandez RN; for sedation; Verbal order read back and verified. 12:11:13 Fentanyl 25 mcg I.V. was administered by Latisha Fernandez RN; for sedation; Verbal order read back and verified. 12:11:57 Procedure started. 12:12:55 Local anesthetic to right radial artery with Lidocaine 2% by Alexander Harrison MD.INITIAL ACCESS ONLY 12:15:44 UNABLE TO GAIN RADIAL ACCESS. 12:15:52 PROCEED TO GROIN 12:16:05 Use device set Multipack Set 12:16:07 DIAGNOSTIC Multipack 5Fr catheter set (ME1293) opened to sterile field. 12:16:08 SHEATH 5FR [place] (BUZ006) opened to sterile field. 12:16:13 Versed 0.5 mg I.V. was administered by Latisha Fernandez RN; for sedation; Verbal order read back and verified. 12:16:17 Fentanyl 25 mcg I.V. was administered by Latisha Fernandez RN; for sedation; Verbal order read back and verified. 12:16:29 Local anesthetic to right femoral artery with Lidocaine 2% by Alexander Harrison MD.ADDITIONAL ACCESS 12:18:24 A 5 Fr sheath was inserted into the Right Femoral artery 12:19:01 A MULTIPACK JL 4.0 5Fr catheter was advanced over the wire and used for Procedure. 12:21:02 LCA angiography performed. 12:21:04 Catheter exchanged over wire. 12:21:27 A MULTIPACK 3DRC 5Fr catheter was advanced over the wire and used for Procedure. 12:23:37 RCA angiography performed. 12:23:38 Catheter exchanged over wire. 12:23:40 ACCDominant side:Right 12:23:53 A MULTIPACK Pigtail 5 Fr catheter was advanced over the wire and used for Procedure. 12:24:42 LV gram done using DOLL 12:24:44 Injector settings: Ml/sec: 10, Volume: 20, 12:24:58 LV hemodynamics recorded. 12:25:11 EF : 25 % 12:25:27 Catheter exchanged over wire. 12:25:29 Proceeding to intervention. 12:25:48 GUIDE 6FR EBU 3.75 catheter ([id number]) opened to sterile field. 12:25:50 SHEATH 6FR Columbia (WFH563) opened to sterile field. 12:25:54 TUBING High Pressure Extension Tubing (Hunter) ([id number]) opened to sterile field. 12:26:10 INFLATOR Merit BasixCompak (IR7516) opened to sterile field. 12:26:20 BMW 300cm Straight [place] 2 wire ([id number]) opened to sterile field. 12:26:35 Pre PCI Site: [place] LAD has 80% stenosis. 12:27:04 Sheath upsized to a 6 Fr Short. 12:27:43 6 Fr EBU 3.75 guide catheter was inserted over the wire 12:29:42 Heparin Bolus 10,000 units I.V. was administered by Latisha Fernandez RN; for anticoagulation; verified with dr harrison Verbal order read back and verified. 12:30:01 BMW 300 wire advanced. 12:31:10 Wire advanced across lesion. 12:33:09 Place stent Inflation Number: 1 A INTEGRITY RX 3.0 x 26 stent ([id number]) was prepped and advanced across the Mid LAD . The stent was deployed at 15 [place] for 0:00 (min:sec) . 12:34:33 Stent catheter was removed intact over wire. 12:34:39 Wire removed. 12:34:39 Guide catheter removed. 12:34:45 EXOSEAL 6Fr (EX600) opened to sterile field. 12:35:42 Sheath removed intact; hemostasis achieved with Exoseal to the Right Femoral artery. 12:35:44 Procedure ended.(Physican Out) 12:37:13 Fluoroscopy time 04.50 minutes. 12:37:17 Fluoroscopy dose: 913 mGy 12:37:17 Flurop Dose total: 913 12:37:24 Dose Area Product 12727 mGy/cm. 12:37:31 Contrast amount:Isovue 300 102ml. 12:37:35 Maximum allowable dose exceeded? No. 12:37:36 Sharps counted by scrub and verified by R.N. 12:37:41 Post-op/insertion site Right Femoral artery dressed using a 4 x 4 and Tegaderm. 12:37:43 Post-procedure physical assessment completed. ASA score P 3 - A patient with severe systemic disease as per Alexander Harrison MD. 12:37:46 Post procedure rhythm: sinus rhythm 12:37:50 Estimated blood loss: 10 ml 12:37:51 Post procedure instruction explained to patient.Patient verbalizes understanding. 12:37:52 Patient needs reinforcement of post procedure teaching. 12:38:16 Procedure type changed to Cath procedure, Diagnostic procedure, LHC, LHC w/Coronaries, Sedation Charges, Moderate Sedation up to 15 minutes, PCI procedure, Coronary Stent, Coronary Stent Initial, Hemochron ACT Test 12:38:52 Procedure and supply charges have been captured, reviewed, submitted and are correct. 12:38:54 Procedure Complication : No complications 12:38:57 Vital chart was stopped 12:38:59 [facility] Findings: MVD- PCI performed (see procedure note) 12:39:00 Operative report dictated upon procedure completion. 12:39:01 See physician's report for complete and final results. 12:39:04 Report given to [facility]. 12:39:07 Patient transfered to [facility] with Bed. 12:39:09 Procedure ended. 12:39:09 Full Disclosure recording stopped 12:39:20 ACC-PCI Only Patient was given prescriptions, or instructed by Alexander Harrison MD to start/continue the following medications upon discharge: Plavix 12:39:22 End room use (Document Last) 12:40:44 ACT drawn and resulted at 307 seconds. (normal therapeutic range 180-240 seconds). 12:40:57 Plavix 600 mg P.O. was administered by Latisha Fernandez RN; for antiplatelet therapy; Verbal order read back and verified. 12:42:30 End room use (Document Last) Intervention Summary Intervention Notes Time ActionType Lesion and Equipment Action# Pressure Duration Attributes Used 12:33:09 Place stent Mid LAD INTEGRITY RX 1 15 00:00 3.0 x 26 stent ([id number]) Device Usage Item Name Manufacture Quantity Catalog Hospital Part Current Minim al Lot# / Number Charge Number Stock Stock Serial# Code ACIST Acist 1 20642 998347 390638 253831 20 Syringe Medical (42592) Systems Inc Bag Decanter Microtek 1 2001S 944334 42016 661986 5 (2001S) Medical Inc. ACIST Hand Acist 1 64209 202204 549962 183286 5 Control Medical (18678) Systems Inc ACIST Acist 1 90091 159957 154476 801887 5 Manifold Medical (25600) Systems Inc Tegaderm 4 x 3M 1 1626W 483305 745638 276192 5 4 (1626W) Medline Cath Medline 1 [id number] 094316 45043 525640 5 Pack ([id number]) MBrace Wrist Advanced 1 140-0250-00 155086 00651 541436 5 Support Vascular ([id number]) Dynamics NEEDLE Cook Brainard Medical 1 W74924 172391 865599 505336 5 21G 4cm Radial (N50207) EMERALD Cardinal 1 502-455 889942 921318 968055 5 Guide Wire Health (502-455) SHEATH 6FR Cardinal 1 4347847 094537 0838773 764595 5 [facility] (9970220) DIAGNOSTIC Cardinal 1 RK3400 011943 58670 777833 30 Multipack Health 5Fr catheter set (UF9138) SHEATH 5FR Terumo 1 UZV742 537804 437661 571640 5 [place] (NAH161) MULTIPACK JL Cardinal 1 477132 5 4.0 5Fr Health catheter MULTIPACK Cardinal 1 208941 5 3DRC 5Fr Health catheter MULTIPACK Cardinal 1 803537 5 Pigtail 5 Fr Health catheter GUIDE 6FR Medtronic 1 [id number] 481551 69681 286763 1 EBU 3.75 catheter ([id number]) SHEATH 6FR Terumo 1 CFU761 457384 702459 889300 40 [place] (UGH103) TUBING High Merit 1 [id number] 074211 06800 063307 10 Pressure Medical Extension Tubing (Harrison) (PS5120Z) INFLATOR Merit 1 RM1151 343498 019789 315836 15 Merit Medical BasixCompak (XH4202) BMW 300cm [place] 1 3890929 055335 635556 459665 5 Straight Vascular [place] 2 wire (5737046) INTEGRITY RX Medtronic 1 [id number] 754101 325568 723518 5 [id number] 3.0 x 26 stent ([id number]) EXOSEAL 6Fr Cardinal 1 EX600 003199 418034 673286 10 (EX600) Health Signature Audit [place] Stage Time Signature Unsigned Intra-Procedure 02/01/2020 Jeanette Pabon 12:42:30 PM RT(R) Intra-Procedure 02/01/2020 Latisha Fernandez RN 12:42:55 PM Intra-Procedure 02/01/2020 Alexander Harrison MD 12:43:20 PM Signatures Performing Physician : Signature : Alexander Harrison MD Date : Time : Monitor : Jeanette Pabon Signature : RT Date : Time : Nurse : Buffie Fernandez RN Signature : Date : Time : [address] [place] [address]
--- NOTE | ~2020-01-31 | HEMODYNAMI ---
PATIENT:MARITZA ACUÑA MEDICAL RECORD: [id number] : 41 LOCATION:[facility] D.2116 ADMISSION DATE: 01/31/20 Generatedon:02/02/202015:14 Patient name: MARITZA ACUÑA Patient #: [id number] : 1945 Date of study: 02/02/2020 Page: Of Hemodynamic Procedure Report Patient Data Patient Demographics Procedure consent was obtained First Name: MARITZA Gender: Male Last Name: ARIANNE : 1945 Patient #: [id number] Age: 74 year(s) Race: SSN: [id number] Additional ID: [id number] Contact details Address: [address] [place] [address] rd State: [place] City: [facility] Zip code: [address] Past Medical History History of disease Date Diagnosis Comments CAD Allergies Allergen Reaction Date Comments Reported Other allergy 02/01/2020 PCN, SULFA Other allergy 02/02/2020 PCN,SULFA Admission Admission Data Admission Date: 01/31/2020 Admission Time: 10:22 Arrival Date: 01/31/2020 Arrival Time: 10:22 Admit Source: Emergency Insurance Payor: Medicare department [facility] #: [id number] Room #: D2116 Height (in.): 73.62 BSA: 2.36 (m2) Height (cm.): 187 BMI: 31.74 (kg/m2) Weight (lbs.): 244.71 Weight (kg.): 111 Lab Results Lab Result Date: 02/02/2020 Lab Result Time: 0:00 Biochemistry Name Units Result Min Max BUN mg/dl 9 --(*---)-- 7 18 Creatinine mg/dl 0.6 --(*---)-- 0.6 1.3 eGFR ml/min 90 --(*---)-- 90 120 NONAFRICAN CBC Name Units Result Min Max Hematocrit % 33.4 *-(----)-- 42 54 Hemoglobin g/dl 10 *-(----)-- 13.5 17.5 Procedure Procedure Types Cath Procedure Diagnostic Procedure Sedation Charges Moderate Sedation up to 15 minutes PCI Procedure Coronary Stent Coronary Stent Initial Hemochron ACT Test Procedure Description Procedure Date Procedure Date: 02/02/2020 Procedure Start Time: 14:53 Procedure End Time: 15:09 Procedure Staff Name Function Jaxon Rocha MD Performing Physician Siomara Garcia RN Nurse Julia Tyson RT Scrub [facility] RT Monitor Procedure Data Cath Procedure Fluoroscopy Diagnostic fluoroscopy Total fluoroscopy Time: 2.1 time: 2.1 min min Diagnostic fluoroscopy Total fluoroscopy dose: 421 dose: 421 mGy mGy Contrast Material Contrast Material Type Amount (ml) Isovue 300 50 Entry Location Entry Primary Successful Side Size Upsize Upsize Entry Closure Succes sful Closure Location (Fr) 1 (Fr) 2 (Fr) Remarks Device Remarks Femoral Left 6 Fr Exoseal artery Short Estimated blood loss: 10 ml Procedure Complications No complications Procedure Medications Medication Administration Route Dosage 0.9% NaCl I.V. 100 ml/hr Oxygen etCO2 Nasal cannula 2 l/min Lidocaine 2% added to field 20 Heparin Flush Bag added to field 2 bags (1000units/500ml NS) Versed I.V. 2 mg Fentanyl I.V. 50 mcg Lopressor I.V. 5 mg Hemodynamics Rest BSA: 2.36 (m2) HGB: 10 (g/dl) O2 Consumption: Estimated: 280.67 (ml/min) O2 Cons umption indexed: Estimated:118.93 (ml/min/m) Heart Rate: 81 (bpm) Snapshots Pre Cath Intra NCS Post Cath Vital Signs Time Heart Resp SPO2 etCO2 NIBP (mmHg) Rhythm Pain Sedation Rate (ipm) (%) (mmHg) Status Level (bpm) 14:45:22 78 16 96 14.9 170/90(130) NSR 0 (11) 10(A) , No pain 14:49:58 83 19 96 19.4 174/91(127) NSR 0 (11) 10(A) , No pain 14:54:35 80 23 97 35.1 168/83(129) NSR 0 (11) 10(A) , No pain 14:59:34 88 21 94 27.6 Measuring NSR 0 (11) 9(A) , No pain 15:00:04 86 21 97 29.1 164/83(118) NSR 0 (11) 9(A) , No pain 15:05:03 89 22 97 29.1 Measuring NSR 0 (11) 9(A) , No pain 15:05:55 81 19 96 32.1 195/101(133) NSR 0 (11) 10(A) , No pain Medications Time Medication Route Dose Verified Delivered Reason Notes E ffectiveness by by 14:46:22 0.9% NaCl I.V. 100 Jaxon Siomara used for ml/hr [facility] procedure MD CORBETT 14:46:27 Oxygen etCO2 2 Jaxon Siomara used for Nasal l/min [facility] procedure cannula MD CORBETT 14:46:33 Lidocaine 2% added 20ml Jaxon Jaxon for local to vial [facility] anesthetic field MD DOWD 14:46:37 Heparin Flush added 2 Jaxon Jaxon used for Bag to bags [facility] John procedure (1000units/500ml field MD DOWD NS) 14:52:07 Versed I.V. 2 mg Jaoxn Siomara for sedation [facility] MD, RN 14:52:15 Fentanyl I.V. 50 Jaxon Siomara for sedation mcg [facility] Ma[facility] Garcia MD RN 15:06:20 Lopressor I.V. 5 mg Jaxon Harringtonyla for [facility] Maikel Garcia hypertension warehouse specialist Log Time Note 14:17:41 Patient Height : 73.62 inches 14:17:41 Patient Weight : 244.71 lbs 14:18:14 Procedure Status PCI. 14:18:15 Time tracking: Regular hours (M-F 7:00 - 5:00) 14:18:19 Plan of Care:Hemodynamics will remain stable., Cardiac rhythm will remain stable., Comfort level will be maintained., Respiratory function will remain adequate., Patient/ family verbilizes understanding of procedure., Procedure tolerated without complication., Recovers from procedure without complications.. 14:20:46 Patient allergic to Other allergyPCN,SULFA 14:21:17 Lab Result : BUN 9 mg/dl 14:21:17 Lab Result : eGFR NONAFRICAN 90 ml/min 14:21:17 Lab Result : Creatinine 0.6 mg/dl 14:21:17 Lab Result : Hematocrit 33.4 % 14:21:17 Lab Result : Hemoglobin 10 g/dl 14::25 Jeanette Pabon RT(R) sent for patient. Start room use. 14:33:01 Patient received from Med II to CCL 1 Alert and oriented. Tansferred to table in Supine position. 14:33:03 Signed procedure consent form obtained from patient. 14:33:04 Warm blankets applied, and dorita hugger turned on for patient comfort. 14:33:04 Correct patient and procedure confirmed by team. 14:33:05 ECG and BP/O2 sat monitors applied to patient. 14:43:53 Vital chart was started 14:43:55 Baseline sample Acquired. 14:44:00 Full Disclosure recording started 14:44:17 Pre-procedure instructions explained to patient. 14:44:17 Pre-op teaching completed and patient verbalized understanding. 14:44:21 Family unavailable. 14:44:22 Patient NPO since Midnight. 14:44:24 Is the patient allergic to Iodine/contrast media? No. 14:44:25 Is patient on blood thinner?Yes 14:44:27 ACC The patient was administered the following blood thiners within the last 24 hours: ACCPlavix 14:44:44 Patient diabetic? Yes. 14:44:45 If diabetic: On Metformin? Yes 14:44:48 If on Metformin: Last Dose? 01/31/2020 14:44:50 Previous problem with sedation/anesthesia? No ? 14:44:52 Snore? Yes 14:44:55 Sleep apnea? No 14:44:55 Deviated septum? No 14:44:56 Opens mouth fully? Yes 14:44:57 Sticks out tongue? Yes 14:45:04 Airway obstruction? No ? 14:45:06 Dentures? No ? 14:46:22 0.9% NaCl 100 ml/hr I.V. was administered by Siomara Garcia RN; used for procedure; Verbal order read back and verified. 14:46:27 Oxygen 2 l/min etCO2 Nasal cannula was administered by Siomara Garcia RN; used for procedure; Verbal order read back and verified. 14:46:33 Lidocaine 2% 20ml vial added to field was administered by Jaxon Rocha MD; for local anesthetic; Verbal order read back and verified. 14:46:37 Heparin Flush Bag (1000units/500ml NS) 2 bags added to field was administered by Jaxon Rocha MD; used for procedure; Verbal order read back and verified. 14:48:24 Pre procedure: left dorsailis pedis pulse 1+ Palpable, but thready & weak; easily obliterated 14:48:31 Patient pain scale 0/10 SHORT OF BREATH. 14:48:36 IV patent on arrival in left hand with 0.9% NaCl at O. 14:48:38 Lab results completed and on chart. 14:48:40 Left groin area was prepped with chlora-prep and draped in sterile fashion 14:48:42 Sharps counted by scrub and verified by R.N. 14:48:42 Alarms reviewed by R. N. 14:48:46 Use device set CATH PACK 14:48:46 ACIST Syringe (56835) opened to sterile field. 14:48:47 ACIST Hand Control (30627) opened to sterile field. 14:48:47 ACIST Manifold (83261) opened to sterile field. 14:48:47 Medline Cath Pack ([id number]) opened to sterile field. 14:48:48 Bag Decanter (2002S) opened to sterile field. 14:48:49 EMERALD Guide Wire (502-119) opened to sterile field. 14:48:55 SHEATH 6FR [place] (MFI192) opened to sterile field. 14:49:04 INFLATOR Merit BasixCompak (MP2376) opened to sterile field. 14:49:17 WHISPER 300cm guide wire ([id number]) opened to sterile field. 14:50:33 Baseline sample Acquired. 14:50:37 Rhythm: sinus rhythm 14:50:42 --------ALL STOP TIME OUT------ 14:50:42 Final Timeout: patient, procedure, and site verified with staff and physician. All members of the team are in agreement. 14:50:44 Left groin site verified by team. 14:50:47 Fire Safety Assessment: A--An alcohol-based skin anteseptic being used preoperatively., C--Open oxygen or nitrous oxide is being used., D--An ESU, laser, or fiber-optic light is being used. 14:50:50 Physical assessment completed. ASA score P 3 - A patient with severe systemic disease as per Jaxon Rocha MD. 14:50:51 1) 90+ Normal kidney functon but urine findings or structural abnormalities or genetic trait point to kidney disease. 14:50:53 Maximum allowable contrast dose (3.7 X eGFR X 0.75)250 ml. 14:50:56 Sedation plan: IV Moderate Sedation Medication:Versed, Fentanyl 14:52:07 Versed 2 mg I.V. was administered by Siomara Garcia RN; for sedation; Verbal order read back and verified. 14:52:15 Fentanyl 50 mcg I.V. was administered by Siomara Garcia RN; for sedation; Verbal order read back and verified. 14:53:09 Procedure started. 14:53:14 Zero performed for pressure channel P1 14:53:24 Local anesthetic to left femerol artery with Lidocaine 2% by Jaxon Rocha MD.INITIAL ACCESS ONLY 14:55:01 A 6 Fr Short sheath was inserted into the Left Femoral artery 14:55:12 GUIDE 6FR HS I catheter (LA6HSI) opened to sterile field. 14:55:23 ACC Pre-intervention CALISTA Flow is 3. 14:55:59 Pre PCI Site: [place] RCA has 90% stenosis. 14:56:42 6 Fr HS1 guide catheter was inserted over the wire 14:56:52 WHISPER 300 wire advanced. 14:57:42 Wire advanced across lesion. 14:59:47 Place stent Inflation Number: 1 A INTEGRITY RX 3.0 x 26 stent ([id number]) was prepped and advanced across the Dist RCA . The stent was deployed at 14 [place] for 0:00 (min:sec) . 15:01:01 Inflation number: 1 The stent balloon was then re-inflated across the Mid RCA to 10 [place] for 0:00 (min:sec) . 15:01:37 Stent catheter was removed intact over wire. 15:04:06 Place stent Inflation Number: 2 A INTEGRITY RX 3.0 x 15 stent ([id number]) was prepped and advanced across the Mid RCA . The stent was deployed at 14 [place] for 0:00 (min:sec) . 15:04:15 Stent catheter was removed intact over wire. 15:04:16 Wire removed. 15:04:16 Guide catheter removed. 15:05:00 EXOSEAL 6Fr (EX600) opened to sterile field. 15:05:12 Sheath removed intact; hemostasis achieved with Exoseal to the Left Femoral artery. 15:05:18 Fluoroscopy time 02.10 minutes. 15:05:21 Flurop Dose total: 421 15:05: Fluoroscopy dose: 421 mGy 15:05:27 Dose Area Product 59739 mGy/cm. 15:05:31 Contrast amount:Isovue 300 50ml. 15:05:33 Maximum allowable dose exceeded? No. 15:05:34 Sharps counted by scrub and verified by R.N. 15:05:43 Procedure ended.(Physican Out) 15:06:20 Lopressor 5 mg I.V. was administered by Siomara Garcia RN; for hypertension; Verbal order read back and verified. 15:07:15 Post-op/insertion site Left Femoral artery dressed using a 4 x 4 and Tegaderm. 15:07:20 Post-procedure physical assessment completed. ASA score P 3 - A patient with severe systemic disease as per Jaxon Rocha MD. 15:07:26 Post procedure rhythm: sinus rhythm 15:07:29 Estimated blood loss: 10 ml 15:07:36 Post procedure instruction explained to patient.Patient verbalizes understanding. 15:07:36 Patient needs reinforcement of post procedure teaching. 15:08:11 ACT drawn and resulted at 211 seconds. (normal therapeutic range 180-240 seconds). 15:08:12 Procedure type changed to Cath procedure, Diagnostic procedure, Sedation Charges, Moderate Sedation up to 15 minutes, PCI procedure, Coronary Stent, Coronary Stent Initial, Hemochron ACT Test 15:09:05 Procedure and supply charges have been captured, reviewed, submitted and are correct. 15:09:08 Procedure Complication : No complications 15:09:10 Vital chart was stopped 15:09:13 [facility] Findings: MVD- PCI performed (see procedure note) 15:09:19 Operative report dictated upon procedure completion. 15:09:19 See physician's report for complete and final results. 15:09:24 Report given to [facility]. 15:09:27 Patient transfered to [facility] with Bed. 15:09:29 Procedure ended. 15:09:29 Full Disclosure recording stopped 15:09:37 End room use (Document Last) Intervention Summary Intervention Notes Time ActionType Lesion and Equipment Action# Pressure Duration Attributes Used 14:59:47 Place stent Dist RCA INTEGRITY RX 1 14 00:00 3.0 x 26 stent ([id number]) 15:01:01 Reinflate Mid RCA INTEGRITY RX 1 10 00:00 stent 3.0 x 26 balloon stent ([id number]) 15:04:06 Place stent Mid RCA INTEGRITY RX 2 14 00:00 3.0 x 15 stent ([id number]) Device Usage Item Name Manufacture Quantity Catalog Hospital Part Current Minimal Lot# / Number Charge Number Stock Stock Serial# Code ACIST Acist 1 21419 912548 063190 124337 20 Syringe Medical (53271) Systems Inc ACIST Hand Acist 1 04053 038422 937412 754814 5 Control Medical (81886) Systems Inc ACIST Acist 1 22632 423298 321321 363638 5 Manifold Medical (77633) Systems Inc Medline Cath Medline 1 [id number] 883578 46973 192526 5 Pack ([id number]) Bag Decanter Microtek 1 2001S 255549 23201 303031 5 (2001S) [employer] EMERALD Cardinal 1 502-455 759458 946298 340889 5 Guide Wire [facility] (502-455) SHEATH 6FR Terumo 1 RQY222 280446 253021 201343 40 [place] (WBG750) INFLATOR Merit 1 KJ5861 371424 536634 402663 15 [facility] Medical BasixCompak (QS7338) WHISPER Blackmon 1 [id number] 321778 035127 058420 5 300cm guide Vascular wire ([id number]) GUIDE 6FR HS Medtronic 1 LA6HSI 881165 19376 331687 1 I catheter (LA6HSI) INTEGRITY RX Medtronic 1 [id number] 108265 975813 582085 5 [id number] 3.0 x 26 stent ([id number]) INTEGRITY RX Medtronic 1 [id number] 570670 686586 770522 5 [id number] 3.0 x 15 stent ([id number]) EXOSEAL 6Fr Cardinal 1 EX600 753517 594491 753839 10 (EX600) Health Signature Audit [place] Stage Time Signature Unsigned Intra-Procedure 02/02/2020 Jeanette Pabon 3:13:21 PM RT(R) Intra-Procedure 02/02/2020 Siomara Garcia 3:13:45 PM RN Intra-Procedure 02/02/2020 Jaxon Talavera 3:14:07 PM Maikel DOWD [facility] [address] [place] [address]
[~2020-01-31 06:38] MED LIST changes: +BACTRIM DS TAB1 EAC1 PO; +BASAGLAR K100 UNIT/1 SC; +BUSPAR10 MG PO; +FLAGYL500 MG PO; +HUMULIN R100 UNIT/1 SC; +IMODIUM2 MG PO; +LEVOFLOXACIN500 MG PO; +LINZESS72 MCG PO; +SEROQUEL25 MG PO; +ZOLOFT50 MG PO
[2020-01-31 06:57] LABS: HEMATOCRIT 33.8 % (42.0-54.0); HEMOGLOBIN 10.2 g/dL (13.5-17.5); LYMPHOCYTES 22.9 % (15-50); MCH 21.5 pg (26.0-34.0); MCHC 30.2 g/dL (31.0-37.0); MCV 71.3 fL (80.0-100.0); MEAN PLATELET VOLUME 8.5 fL (7.4-10.4); NEUTROPHILS 69.6 % (40-80); RBC 4.74 10x6/uL (4.20-6.10); RDW 18.1 % (11.5-14.5); WBC 8.2 10x3/uL (4.8-10.8)
[2020-01-31 06:59] LABS: PLATELET COUNT 444 10x3/uL (130-400)
[2020-01-31 07:03] LABS: CALC OSMOLALITY 287 mosm/kg (275-300); CALCIUM 8.5 mg/dL (8.5-10.1); CHLORIDE - SERUM 106 mmol/L (98-107); CREATININE - SERUM 0.7 mg/dL (0.6-1.3); POTASSIUM - SERUM 3.7 mmol/L (3.5-5.1); SODIUM 142 mmol/L (136-145); UREA NITROGEN 21 mg/dL (7-18); eGFR NON AFRICAN AMERICAN > 90 mL/min (90-120)
[2020-01-31 07:05] LABS: GLUCOSE 137 mg/dL (74-106)
[2020-01-31 07:24] LABS: ALBUMIN 2.9 g/dL (3.4-5.0); ALKALINE PHOSPHATASE 81 U/L (30-120); ALT (SGPT) 26 U/L (10-68); AMYLASE - SERUM 14 U/L (25-115); BILIRUBIN - TOTAL 0.38 mg/dL (0.2-1.3); PROTEIN - SERUM 6.4 g/dL (6.4-8.2)
[2020-01-31 07:25] LABS: LIPASE 33 U/L (73-393)
[2020-01-31 07:26] LABS: TROPONIN-I 0.071 ng/mL (0.000-0.060)
--- NOTE | 2020-01-31 07:26 | NUR ---
0.071 TROPONIN CALLED BY [facility] AT THIS TIME. NOTIFIED EDP.
--- NOTE | 2020-01-31 07:30 | NUR ---
PT ASSISTED TO STANDING ON SIDE OF BED. PT UNABLE TO URINATE. IN/OUT CATH ATTEMPTED AT THIS TIME BUT WAS UNSUCCESSFUL. CATH COULD NOT PASS THROUGH [facility]. EDP NOTIFIED.
--- NOTE | 2020-01-31 07:47 | NUR ---
PT LEFT ED VIA STRETCHER FOR CT.
--- NOTE | 2020-01-31 08:23 | NUR ---
PT RETURNED TO ED VIA STRETCHER FROM CT.
--- NOTE | 2020-01-31 08:39 | NUR ---
435ML PRESENT ON BLADDER SCAN
[2020-01-31 10:54] LABS: CKMB 3.7 U/L (0.0-3.6); CREATINE KINASE 88 UL (21-232)
[2020-01-31 10:56] LABS: TROPONIN-I 0.125 ng/mL (0.000-0.060)
--- NOTE | 2020-01-31 11:00 | NUR ---
URINE SENT TO LAB
[2020-01-31 11:37] LABS: GLUCOSE NEGATIVE (NEGATIVE); NITRITE NEGATIVE (NEGATIVE)
[2020-01-31 11:38] LABS: BILIRUBIN NEGATIVE (NEGATIVE); KETONE SMALL mg/dL (NEGATIVE); UROBILINOGEN NORMAL (NORMAL)
[2020-01-31 11:39] LABS: BACTERIA MODERATE /hpf (NEGATIVE); EPITHELIAL CELLS 0-5 /hpf (0-5); RED CELLS - URINE 0-5 /hpf (0-5); WHITE CELLS - URINE >50 /hpf (NEGATIVE); YEAST OCC /hpf (NONE SEEN)
[2020-01-31 12:06] VITALS: BP 144/65; BMI 31.5
[2020-01-31 12:45] VITALS: BP 150/88
[2020-01-31 16:37] LABS: CKMB 3.1 U/L (0.0-3.6); CREATINE KINASE 74 UL (21-232)
[2020-01-31 16:39] LABS: TROPONIN-I 0.132 ng/mL (0.000-0.060)
[2020-01-31 17:07] LABS: ALT (SGPT) 23 U/L (10-68); CALCIUM 7.9 mg/dL (8.5-10.1); CARBON DIOXIDE 29.8 mmol/L (21.0-32.0); CHLORIDE - SERUM 104 mmol/L (98-107); CHOL - HDL RATIO 3.6 ratio (2.3-4.9); CHOLESTEROL, TOTAL 94 mg/dL (0-200); CREATININE - SERUM 0.7 mg/dL (0.6-1.3); HDL CHOLESTEROL 26 mg/dL (32-96); LDL CHOLESTEROL 48 mg/dL (0-100); LDL-HDL RATIO 1.8 ratio (1.5-3.5); POTASSIUM - SERUM 3.9 mmol/L (3.5-5.1); SODIUM 138 mmol/L (136-145); TRIGLYCERIDE 101 mg/dL (30-200); UREA NITROGEN 17 mg/dL (7-18); eGFR NON AFRICAN AMERICAN > 90 mL/min (90-120)
[2020-01-31 17:08] LABS: CALC OSMOLALITY 283 mosm/kg (275-300); GLUCOSE 212 mg/dL (74-106)
[2020-01-31 18:06] VITALS: BP 138/66
--- NOTE | 2020-01-31 20:10 | NUR ---
1946 REPORT RECIEVED AND INITITAL ROUNDS COMPLETED. PT RESTING IN BED. CALL LIGHT IN REACH. NO DISTRESS. SEE ASSESSMENT.
[2020-01-31 21:30] VITALS: BP 137/63
[2020-01-31 22:38] LABS: CKMB 2.2 U/L (0.0-3.6); CREATINE KINASE 66 UL (21-232)
[2020-01-31 22:39] LABS: TROPONIN-I 0.117 ng/mL (0.000-0.060)
[2020-02-01 04:29] VITALS: BP 146/68
[2020-02-01 05:12] LABS: HEMATOCRIT 33.1 % (42.0-54.0); HEMOGLOBIN 9.9 g/dL (13.5-17.5); LYMPHOCYTES 21.5 % (15-50); MCH 21.5 pg (26.0-34.0); MCHC 29.9 g/dL (31.0-37.0); MCV 71.8 fL (80.0-100.0); MEAN PLATELET VOLUME 8.6 fL (7.4-10.4); NEUTROPHILS 70.9 % (40-80); PLATELET COUNT 371 10x3/uL (130-400); RBC 4.61 10x6/uL (4.20-6.10)
[2020-02-01 05:39] LABS: ALBUMIN 2.8 g/dL (3.4-5.0); ALKALINE PHOSPHATASE 79 U/L (30-120); ALT (SGPT) 22 U/L (10-68); BILIRUBIN - TOTAL 0.27 mg/dL (0.2-1.3); CALCIUM 8.2 mg/dL (8.5-10.1); CARBON DIOXIDE 29.1 mmol/L (21.0-32.0); CHLORIDE - SERUM 104 mmol/L (98-107); CREATININE - SERUM 0.7 mg/dL (0.6-1.3); POTASSIUM - SERUM 3.8 mmol/L (3.5-5.1); PROTEIN - SERUM 5.8 g/dL (6.4-8.2); SODIUM 139 mmol/L (136-145); eGFR NON AFRICAN AMERICAN > 90 mL/min (90-120)
[2020-02-01 05:41] LABS: CALC OSMOLALITY 280 mosm/kg (275-300); GLUCOSE 152 mg/dL (74-106); UREA NITROGEN 12 mg/dL (7-18)
--- NOTE | 2020-02-01 07:15 | NUR ---
RECEIVED PT IN BED EYES CLOSED RESP UNLABORED SKIN W/D NAD NOTED
[2020-02-01 09:00] VITALS: BP 152/62
[2020-02-01 14:05] VITALS: Ht 188 cm; Wt 106.2 kg
[2020-02-01 15:00] VITALS: BP 154/72
--- NOTE | 2020-02-01 17:37 | NUR ---
PT REFUSES SCDs AT THIS TIME
--- NOTE | 2020-02-01 19:45 | NUR ---
REPORT RECIEVED AND INITIAL ROUNDS COMPLETED. PT RESTING IN BED. BED IS SOAKED WITH URINE. CARE AND LINEN CHANGE PROVIDED. CPOC.
[2020-02-01 21:21] VITALS: BP 160/71
[2020-02-02 00:39] VITALS: BP 162/73
--- NOTE | 2020-02-02 06:00 | NUR ---
NO CHANGE FROM INITIAL SHIFT ASSESSMENT. PT HAS BEEN NPO SINCE MIDNIGHT FOR SCHEDULED AM PROCEDURE. CARE FOR INCONTINENCE PROVIDED TWICE DURING THE NIGHT. CPOC. CALL LIGHT IN REACH.
[2020-02-02 06:27] VITALS: BP 165/75
[2020-02-02 06:40] LABS: CALC OSMOLALITY 277 mosm/kg (275-300); CALCIUM 8.3 mg/dL (8.5-10.1); CARBON DIOXIDE 26.6 mmol/L (21.0-32.0); CHLORIDE - SERUM 104 mmol/L (98-107); CREATININE - SERUM 0.6 mg/dL (0.6-1.3); GLUCOSE 159 mg/dL (74-106); POTASSIUM - SERUM 3.9 mmol/L (3.5-5.1); SODIUM 138 mmol/L (136-145); UREA NITROGEN 9 mg/dL (7-18); eGFR NON AFRICAN AMERICAN > 90 mL/min (90-120)
[2020-02-02 07:52] LABS: HEMATOCRIT 33.4 % (42.0-54.0); LYMPHOCYTES 12.2 % (15-50); MCH 21.5 pg (26.0-34.0); MCHC 29.9 g/dL (31.0-37.0); MCV 71.7 fL (80.0-100.0); MEAN PLATELET VOLUME 8.9 fL (7.4-10.4); NEUTROPHILS 80.9 % (40-80); PLATELET COUNT 400 10x3/uL (130-400); RBC 4.66 10x6/uL (4.20-6.10); RDW 18.1 % (11.5-14.5); WBC 9.4 10x3/uL (4.8-10.8)
[2020-02-02 08:22] VITALS: BP 157/76
[2020-02-02 08:29] LABS: CHOL - HDL RATIO 3.2 ratio (2.3-4.9); LDL-HDL RATIO 1.8 ratio (1.5-3.5)
[2020-02-02 11:57] VITALS: BP 137/65
--- NOTE | 2020-02-02 15:29 | NUR ---
PT RETURN FROM BILLING CLINICIAN. LEFT FEM CATH SITE IS C/D/I WITH NO S/S OF HEMATOMA PRESENT. VSS AND WNL. RR EVEN AND UNLABORED. PT DENIES ANY NEEDS AT THIS TIME. PERIPHERAL PULSES EVEN BILATERALLY. WILL CTM.
[2020-02-02 20:00] VITALS: BP 168/70
[2020-02-03] VITALS: BP 156/69
--- NOTE | 2020-02-03 01:02 | NUR ---
RECEIVED BEDSIDE REPORT. PATIENT IS ALERT AND PLEASANTLY CONFUSED., CURRENTLY EATING SUPPER. RESPIRATIONS ARE EVEN AND UNLABORED. PATIENT ON 2L NC. NO S/S OF DISTRESS. NO C/O PAIN. PATIENT LEFT AND RIGHT GROIN ASSESSED. DRESSINGS C/D/I. NO S/S OF BRUISING. BLEEDING OR HEMATOMA. CALL LIGHT WITHIN REACH. DENIES NEEDS AT THIS TIME. CALL LIGHT WITHIN REACH.
--- NOTE | 2020-02-03 01:05 | NUR ---
PATIENT INCONTINENT OF URINE. PATIENT CHANGED. BED BATH GIVEN. CALL LIGHT WITHIN REACH. WILL CPOC.
[2020-02-03 05:50] LABS: CALC OSMOLALITY 279 mosm/kg (275-300); CALCIUM 8.3 mg/dL (8.5-10.1); CHLORIDE - SERUM 104 mmol/L (98-107); CREATININE - SERUM 0.7 mg/dL (0.6-1.3); GLUCOSE 183 mg/dL (74-106); POTASSIUM - SERUM 3.4 mmol/L (3.5-5.1); SODIUM 138 mmol/L (136-145); UREA NITROGEN 10 mg/dL (7-18); eGFR NON AFRICAN AMERICAN > 90 mL/min (90-120)
[2020-02-03 06:17] LABS: HEMATOCRIT 32.4 % (42.0-54.0); LYMPHOCYTES 15.7 % (15-50); MCH 21.8 pg (26.0-34.0); MCHC 30.9 g/dL (31.0-37.0); MCV 70.7 fL (80.0-100.0); MEAN PLATELET VOLUME 8.9 fL (7.4-10.4); NEUTROPHILS 75.6 % (40-80); PLATELET COUNT 404 10x3/uL (130-400); RBC 4.58 10x6/uL (4.20-6.10); WBC 8.4 10x3/uL (4.8-10.8)
--- NOTE | 2020-02-03 08:08 | OP ---
PATIENT NAME: MARITZA ACUÑA MEDICAL RECORD: [id number] :41 LOCATION:D.M2 D.2115 ADMISSION DATE:01/31/20 SURGEON: ZAKIYA MITCHELL MD DATE OF OPERATION: 02/02/2020 PROCEDURE: PTCA stent. DESCRIPTION OF PROCEDURE: After a 6-[place]izen [place] sheath was placed in left femoral artery, Hockey stick guiding catheter provided excellent guide catheter support followed 300 cm Whisper wire was placed across the tightly occluded right coronary down this portion of vessel. Distal lesion 90% and proximal lesion 80%. Distally we deployed a 3.0 x 26 mm Integrity nondrug-eluting stent up to 14 atmospheres. More proximally, a 15 mm Integrity [id number] stent up to 14 atmospheres. Final angiography shows excellent resolution of 90% distal stenosis, 80% proximal stenosis, no significant residual. CALISTA flow was 3 throughout the procedure. Heparin used during the case. The patient was placed on Plavix. Sheath was closed with ExoSeal device. TRANSINT:[id number] Voice Confirmation ID: [id number] DOCUMENT ID: [id number] ZAKIYA MITCHELL MD at 0808 CC: [id number] DICTATION DATE: 02/02/20 1518 WEIGHER AND CHARGER: 02/02/20 2139 ADM IN [facility] [address] [place] [address]
[2020-02-03 09:00] VITALS: BP 187/94
[2020-02-03 09:27] VITALS: BP 133/51; BP 168/70
[2020-02-03 11:00] VITALS: BP 141/71
--- NOTE | 2020-02-03 13:52 | NUR ---
Nutrition Follow-up: Pt confused. Nursing reports pt ate well for dinner last night but fell asleep during breakfast this AM. Diet: Diabetic Wt: 233.6# (02/01); 245# (01/30 - stated) Last BM: 02/01 per chart Labs noted: K+ 3.4, Glu 183, Ca 8.3 Meds noted: Humulin, NS @ 125, electrolyte protocol -Encourage PO intake and honor food preferences within diet restrictions. -Offer Glucerna if avg PO intake <50%. -Monitor wt; noted daily wts ordered. -RD following.
[2020-02-03 15:00] VITALS: BP 124/79
[2020-02-03 20:00] VITALS: BP 169/74
--- NOTE | 2020-02-03 20:07 | NUR ---
PATIENT IS RESTING COMFORTABLY IN BED. HE IS ALERT AND ORIENTED. HIS OXYGEN WAS PUT BACK IN HIS NOSE. HE IS FORGETFUL. HE IS ON IV FLUIDS. WE WILL CONTINUE TO MONITOR HIS RATE AND RHYTHM.
[2020-02-04 04:00] VITALS: BP 149/66
--- NOTE | 2020-02-04 04:02 | NUR ---
PATIENT IS AWAKE IN BED. 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 HE FORGETS TO USE THE URINAL, AND IS INCONTINENT. HE FORGETS TO LEAVE HIS MASAL CANULA IN, SO I AM GOING IN AND PUTTING IT IN HIS NOSE.
--- NOTE | 2020-02-04 07:30 | NUR ---
REPORT RECIEVED. PT LYING SEMI FOWLERS. RR EVEN AND UNLABORED ON RA. PT HAS A L HAND PIV INFUSING NS @ 100. BED LOCKED AND IN LOWEST POSITION, CALL LIGHT WITHIN REACH. WILL CTM
[2020-02-04 08:30] VITALS: BP 172/82
[2020-02-04 08:34] VITALS: BP 172/82
[2020-02-04] MEDS ORDERED: PLAVIX75 MG PO (11:02)
[2020-02-04] MEDS ORDERED: LEVOFLOXACIN500 MG PO (11:05)
[2020-02-04] MEDS ORDERED: BAYER CHEWABLE81 MG PO (11:17)
--- NOTE | 2020-02-04 11:48 | MORECARE ---
CASE MANAGEMENT DISCHARGE SUMMARY PATIENT: MARITZA ACUÑA UNIT: [id number] ADM DATE: 01/31/20 AGE: 74 : 43 SEX: M ROOM/BED: D.2116 AUTHOR: ALCIRA DRISCOLL PHYSICIAN: REFERRING PHYSICIAN: CODY TILLMAN MD DATE OF SERVICE: 02/04/20 Discharge Plan Patient Name: MARITZA ACUÑA [facility] 1945 Planned Disposition: Nursing Facility RYAN Cert Anticipated Discharge Date: 02/04/20 Discharge Date: Expected LOS: 4 Initial Reviewer: [email or web address] Initial Review Date: 01/31/2020 Generated: 02/04/20 12:47 pm External Providers External Provider: [facility] Next Contact Date: Service Request Date: Service Type: Resolution: Reviewer: Comments: Patient Name: MARITZA ACUÑA Page 54615 at 1148 All edits/amendments must be made on the electronic document DICTATION DATE: 02/04/20 1147 COMPLAINT EVALUATION OFFICER: LIEZT 02/04/20 1147 RPT#: [id number] PA DATE: STATUS: ADM IN [facility] [address] [place] [address] END OF REPORT
--- NOTE | 2020-02-04 13:57 | NUR ---
DC PAPERWORK GONE OVER WITH PT, PT UNABLE TO SIGN. PIV REMOVED CATH TIP FULLY INTACT. TELEMETRY REMOVED AND RETURNED TO RELEASE ENGINEER. ALL VALUBLES REMOVED FROM ROOM. REPORT CALLED TO THE [facility]. THEY ARE HERE TO TAKE HIM BACK NOW.
--- NOTE | 2020-02-04 14:18 | MORECARE ---
CASE MANAGEMENT DISCHARGE SUMMARY PATIENT: MARITZA ACUÑA UNIT: [id number] ADM DATE: 01/31/20 AGE: 74 : 43 SEX: M ROOM/BED: D.2116 AUTHOR: ALCIRA DRISCOLL PHYSICIAN: REFERRING PHYSICIAN: CODY TILLMAN MD DATE OF SERVICE: 02/04/20 Discharge Plan Patient Name: MARITZA ACUÑA [facility] [facility] 1945 Planned Disposition: Nursing Facility RYAN Cert Anticipated Discharge Date: 02/04/20 Discharge Date: Expected LOS: 4 Initial Reviewer: [email or web address] Initial Review Date: 01/31/2020 Generated: 02/04/20 3:17 pm DCP- Discharge Planning Updated by [email or web address]: Lianet Mart on 02/04/20 1:[address] CM met with patient to discuss initial discharge planning. Patient is in agreement to proceed with the assessment. Patient reports that he lives at the [facility] in a LT bed. Patient is alert/oriented. Stairs/steps: 0. PCP: Dr. Tillman. Pharmacy: [facility]. Emergency contact:: Clem Ackerman (friend) [phone]. Patient denies the need for additional services at this time and feels safe returning to previous environment. Transportation at time of discharge: [facility] will transport back to a Runner Man bed. Transportation Van. Last DP export: 02/04/20 10:48 a Patient Name: MARITZA ACUÑA Page 22021 at 1418 All edits/amendments must be made on the electronic document DICTATION DATE: 02/04/201416 SALES AND MARKETING SPECIALIST: LIZET 02/04/201416 RPT#: [id number] DC DATE: STATUS: ADM IN [facility] [address] [place] [address] END OF REPORT
--- NOTE | 2020-02-04 14:23 | NUR ---
I have reviewed this patient and I concur with the Shift Assessment completed by the Licensed Practical Nurse today this shift.
--- NOTE | 2020-02-04 14:26 | MORECARE ---
CASE MANAGEMENT DISCHARGE SUMMARY PATIENT: MARITZA ACUÑA UNIT: [id number] ADM DATE: 01/31/20 AGE: 74 : 43 SEX: M ROOM/BED: D.2116 AUTHOR: ALCIRA DRISCOLL PHYSICIAN: REFERRING PHYSICIAN: CODY TILLMAN MD DATE OF SERVICE: 02/04/20 Discharge Plan Patient Name: MARITZA ACUÑA [facility] [facility] 1945 Planned Disposition: Nursing Facility RYAN Cert Anticipated Discharge Date: 02/04/20 Discharge Date: Expected LOS: 4 Initial Reviewer: [email or web address] Initial Review Date: 01/31/2020 Generated: 02/04/20 3:26 pm DCP- Discharge Planning Updated by [email or web address]: Lianet Mart on 02/04/20 1:[address] CM met with patient to discuss initial discharge planning. Patient is in agreement to proceed with the assessment. Patient reports that he lives at the [facility] in a LT bed. Patient is alert/oriented. Stairs/steps: 0. PCP: Dr. Tillman. Pharmacy: [facility]. Emergency contact:: Clem Ackerman (friend) [phone]. Patient denies the need for additional services at this time and feels safe returning to previous environment. Transportation at time of discharge: [facility] will transport back to a Pipe [employer]orem[employer] bed. Transportation Van. Last DP export: 02/04/20 1:17 p Patient Name: MARITZA ACUÑA Page 15188 at 1426 All edits/amendments must be made on the electronic document DICTATION DATE: 02/04/20 1426 DIRECTOR OUTPATIENT SERVICES: LIZET 02/04/20 1426 RPT#: [id number] DC DATE: STATUS: ADM IN [facility] [address] [place] [address] END OF REPORT
--- NOTE | 2020-02-04 16:53 | MORECARE ---
CASE MANAGEMENT DISCHARGE SUMMARY PATIENT: MARITZA ACUÑA UNIT: [id number] ADM DATE: 01/31/20 AGE: 74 : 41 SEX: M ROOM/BED: D.2116 AUTHOR: ALCIRA DRISCOLL PHYSICIAN: REFERRING PHYSICIAN: CODY TILLMAN MD DATE OF SERVICE: 02/04/20 Discharge Plan Patient Name: MARITZA ACU[facility]A [facility] [facility] 1945 Planned Disposition: Nursing Facility [facility]YAN Cert Anticipated Discharge Date: 02/04/20 Discharge Date: 02/04/2020 Expected LOS: 4 Initial Reviewer: [email or web address] Initial Review Date: 01/31/2020 Generated: 02/04/20 5:52 pm DCP- Discharge Planning Updated by [email or web address]: Lianet Mart on 02/04/20 1:[address] CM met with patient to discuss initial discharge planning. Patient is in agreement to proceed with the assessment. Patient reports that he lives at the [facility] in a LT bed. Patient is alert/oriented. Stairs/steps: 0. PCP: Dr. Tillman. Pharmacy: [facility]. Emergency contact:: Clem Ackerman (friend) [phone]. Patient denies the need for additional services at this time and feels safe returning to previous environment. Transportation at time of discharge: The [facility] will transport back to a [facility] bed. Transportation Van. Last DP export: 02/04/20 1:26 p Patient Name: MARITZA ACUÑA Page [id number] at [id number] All edits/amendments must be made on the electronic document DICTATION DATE: 02/04/201652 CHIEF PAYROLL CLERK: LIZET 02/04/201652 RPT#: [id number] DC DATE:02/04/20 STATUS: DIS IN [facility] [address] [place] [address] END OF REPORT
== END 2020-02-04 14:43 | DRG 249 ==
LOC: D.ER 06:38 → D.M2 10:22
PROVIDERS: Emergency Medicine; Family Medicine; Internal Medicine Cardiovascular Disease; Internal Medicine Interventional Cardiology; ADMIT Legal Medicine; ATTEND Legal Medicine
PROC: 4A023N7 Measurement of Cardiac Sampling and Pressure, Left Heart, Percutaneous Approach (ICD-10-PCS; 2020-02-01)
PROC: B2111ZZ Fluoroscopy of Multiple Coronary Arteries using Low Osmolar Contrast (ICD-10-PCS; 2020-02-01)
PROC: 02703DZ Dilation of Coronary Artery, One Artery with Intraluminal Device, Percutaneous Approach (ICD-10-PCS; 2020-02-01 11:37)
PROC: 02703EZ Dilation of Coronary Artery, One Artery with Two Intraluminal Devices, Percutaneous Approach (ICD-10-PCS; principal; 2020-02-02 14:15)
DX: I21.4 Non-ST elevation (NSTEMI) myocardial infarction (principal); K52.9 Noninfective gastroenteritis and colitis, unspecified; E11.69 Type 2 diabetes mellitus with other specified complication; N28.1 Cyst of kidney, acquired; I10 Essential (primary) hypertension; D64.9 Anemia, unspecified; F03.90 Unspecified dementia, unspecified severity, without behavioral disturbance, psychotic disturbance, mood disturbance, and anxiety; D47.3 Essential (hemorrhagic) thrombocythemia; F20.9 Schizophrenia, unspecified